=== PATIENT | female | born 2005 | race Caucasian/White ===

== ENCOUNTER 2025-05-25 14:48 | Emergency (ER) | payer OTHER, SELFPAY ==
--- OUTSIDE RECORDS SUMMARY | 2025-05-25 14:49 | XMS_ITS | Clinical Summary ---
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 Name Role Phone Aline Reyes MD Primary Care Prov ider Allergies No known active allergies Medications No known medications Active Problems ProblemNoted DateDiagnosed Datelabial yvwuigqoq56/10/2006 Encounters DateTypeDepartmentCare JlyiPodtjjzswoc55/27/2025Nurse Triage [facility] [address] [place], [place] [phone] Aline Reyes MD Problemfrom Last 3 Months Immunizations ImmunizationAdministration DatesNext HhzIIbC37/15/2008,06/25/2005,2004, 2004,2004HIB PRP-T (ActHIB,Hiberix)06/25/2005,2004,2004 Hepatitis A (Peds)11/07/2013,04/08/2006Hepatitis B (Peds)06/25/2005,2004, 2004Inactivated Polio Sdfdqfq0005/13/2008,2004,2004,2004 Influenza, IIV3 (Age 6-35 mos)04/08/2006Influenza, IIV3 (Age >=3 years) 05/13/2008MENINGOCOCCAL VACCINE 2 VIAL 2MO-55YO (MENVEO)03/03/2015MMR107/14/2007, 03/12/2005Pneumococcal conj 7-Valent (Prevnar 7)06/25/2005,2004,2004 ,2004Tdap1Varicella Tdpxdiq4705/13/2008,03/12/2005 Family History Medical HistoryRelationNameCommentsGood HealthBrother 1Good HealthBrother 2Good HealthBrother 3Good HealthFatherGood HealthMotherGood HealthSister 1Good Health Sister 2RelationNameStatusCommentsBrother 1AliveBrother 2AliveBrother 3Alive FatherAliveMotherAliveSister 1AliveSister 2Alive Social History Tobacco UseTypesPacks/DayYears UsedDateSmoking Tobacco: NeverSmokeless Tobacco: Never Comments:no passive smoke ex posure Alcohol UseStandard Drinks/WeekCommentsNo0 (1 standard drink = 0.6 oz pure alcohol)PHQ-2AnswerDate RecordedPHQ-2 Uwobn794CommentsNoSex and Gender InformationValueDate RecordedSex Assigned at BirthNot on fileLegal Sex Lfparq0006/12/2012 7:06 AM CSTGender IdentityNot on fileSexual OrientationNot on file Last Filed Vital Signs Vital SignReadingTime TakenCommentsBlood Wzvjxnuk224/69006/04/2024 11:51 AM 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 Cvswi885806/04/2024 11:51 AM XINMpysgprjalb24.4 ??C (97.6 ??F)06/04/2024 11:51 AM CSTRespiratory Czst196006/04/2024 11:51 AM CSTOxygen Mokqhtaalr81%06/04/2024 11:51 AM CSTInhaled Oxygen Concentration--Jljvgs77.4 kg (120 lb)06/04/2024 11:51 AM JDFWgxuic043.5 cm (5' 1.22)04/03/2018 3:13 PM CSTBody Mass Index-- Plan of Treatment Health MaintenanceDue DateLast DoneCommentsHIV for age 15-6502/28/2019HPV series for age 9-45 (1 - 3-dose series)02/28/2019Depression screening for age 12+ , 03/01/2017, 04/27/2016Meningococcal series for age 11-21 (2 - 2-dose series)BMI (ht and wt on same day) for age 18+ 02/28/2022Hepatitis C screening for age 18-7902/28/2022OVID-19 vaccine series (1 - 2024- season)2025Influenza Vaccine (#1)/, 04/08/2006Pap test for age 21-6502/28/2025Tetanus Hepatitis B series for 19+Kkznmulze14/27/2006, 2004, 2004 Pneumococcal series for age 6-49Aged Out06/25/2005, 2004, 2004, Additional history existsNo longer eligible based on patient's age to complete this topic Insurance Care Teams Team MemberRelationshipSpecialtyStart DateEnd Date Aline Reyes MD [address] [place] [address] [facility] - Lmyjimz39/8/05
[2025-05-25 15:01] VITALS: BP 120/75; PULSE 105; RESP 20; TEMP 37.9; O2SAT 99; BMI 21.9
--- NOTE | 2025-05-25 15:49 | ED.GENADULT ---
HPI - General Adult General Chief complaint: Vaginal Bleeding Stated complaint: possible miscarriage Time Seen by Provider: 05/25/25 15:34 History of Present Illness HPI narrative: This 20-year-old female states that she had a positive test at home 3 days ago. Today she developed some mild vaginal bleeding and abdominal cramping. She wonders if she is having a miscarriage. She states that her last menstrual period was 1 month and 2 days ago. This is her 1st . She states that she typically has more intense symptoms of cramping in bleeding when she has menses compared to what she is experiencing today. Related Data Home Medications ?Medication ?Instructions ?Recorded ?Confirmed amoxicillin 500 mg-potassium 1 tab PO BID 06/12/24 06/12/24 clavulanate 125 mg tablet Allergies Allergy/AdvReac Type Severity Reaction Status Date / Time No Known Drug Allergies Allergy Verified 06/12/24 12:58 Review of Systems Status of ROS: Reports: 10 or more systems reviewed and unremarkable except as noted in History and below Narrative: Constitutional: No fevers, no weight gain or loss. Eyes: No discharge. No vision changes. HENT: No congestion, no sore throat, no ear pain. Cardiovascular: No chest pain, no palpitations. Respiratory: No shortness of breath, no wheezes, no cough. Gastrointestinal: No vomiting, no diarrhea. Genitourinary: No dysuria, no hematuria. Abdominal cramping and some vaginal bleeding. Musculoskeletal: Normal range of motion. Skin: No rashes, no pruritis. Neurological: No dizziness, weakness, sensory change, speech change. Endo/Heme/Allergies: No bruising or bleeding. No polydipsia. Pysch: no suicidality, no anxiety, no insomnia. All other systems reviewed and are negative. Exam Narrative: Exam Narrative: Constitutional: Well-developed, well-nourished, no acute distress. HEENT: Normocephalic, atraumatic. Neck: Normal range of motion. Nontender. Supple. Heart: Intact distal pulses. Lungs: No chest discomfort. No wheezes, rhonchi, or rales. Abdomen: Nontender. Back: Normal range of motion. Extremities: Normal range of motion. No injury. Skin: Intact. No rash. Warm. No erythema or pallor. Neurologic: No altered sensation. No weakness. Alert and oriented. Psychiatric: No suicidality. No anxiety or depression. No insomnia. Nursing notes and vitals signs are reviewed. Const: Vital Signs, click to edit/add: Vital Signs - 24 hr 05/25/25 15:01 Temperature 100.3 F H Pulse Rate [Pulse Oximeter] 105 H Respiratory Rate 20 Blood Pressure [Ri ght Upper Arm] 120/75 Pulse Oximetry 99 Oxygen Delivery Me thod Room Air Course Vital Signs Vital signs: Initial Vital Signs Temperature 100.3 F H 05/25/25 15:01 Temperature Source Temporal Artery Scan 05/25/25 15:01 Pulse Rate 105 H 05/25/25 15:01 Respiratory Rate 20 05/25/25 15:01 Blood Pressure 120/75 05/25/25 15:01 Blood Pressure Mean 90 05/25/25 15:01 Blood Pressure Position Sitting 05/25/25 15:01 Pulse Oximetry 99 05/25/25 15:01 Oxygen Delivery Method Room Air 05/25/25 15:01 Vital Signs Temperature 100.3 F H 05/25/25 15:01 Pulse Rate 105 H 05/25/25 15:01 Respiratory Rate 20 05/25/25 15:01 Blood Pressure 120/75 05/25/25 15:01 Pulse Oximetry 99 05/25/25 15:01 Oxygen Delivery Method Room Air 05/25/25 15:01 Temperature 100.3 F H 05/25/25 15:01 Pulse Rate 105 H 05/25/25 15:01 Respiratory Rate 20 05/25/25 15:01 Blood Pressure 120/75 05/25/25 15:01 Pulse Oximetry 99 05/25/25 15:01 Oxygen Delivery Method Room Air 05/25/25 15:01 Medical Decision Making MDM Narrative Medical decision making narrative: This patient comes in stating that she had a positive test at home a couple days ago but now is having some cramping and small amount of vaginal bleeding. A beta hCG level returns at 19.75 indicating the likely in the 1st week of gestation. I did use bedside ultrasound and saw normal a bladder and uterus without any evidence of gestational sac, however it is much too early for something to be visualized at this time. A nasal swab is obtained also and happens to return positive for influenza A. Patient states that she has had a mild cough for upwards of a week but states that she does not feel miserable and her symptoms are rather mild. The patient is okay to be discharged home. I stated that she may be beginning to have a miscarriage but time will tell. I advised her regarding signs and symptoms indicating need for return and stated that there is value in having a repeat beta hCG level and a couple days to see where the level is going as a predictor for her . Lab Data Labs: Lab Results 05/25/25 05/25/25 Range/Units 15:05 15:56 WBC 8.63 (4.50-11.00) K/uL RBC 4.42 (4.00-5.20) m/uL Hgb 13.6 (12.0-16.0) gm/dL Hct 41.4 (33.0-51.0) % MCV 94 (80-100) fL MCH 31 (26-34) pg MCHC 33 (32-36) gm/dL RDW Coeff of Rashaad 11.7 (11.5-15.5) % Plt Count 232 (140-440) K/uL Neut % (Auto) 88.0 H (42.0-72.0) % Lymph % (Auto) 4.8 L (20-44) % [place] % (Auto) 6.8 (0.0-11.0) % Eos % (Auto) 0.1 (0.0-7.0) % Baso % (Auto) 0.2 (0.0-3.0) % Neut # (Auto) 7.60 H (1.7-7.0) K/uL Lymph # (Auto) 0.40 L (0.90-2.90) K/uL [place] # (Auto) 0.60 (0.00-0.90) K/UL Eos # (Auto) 0.01 (0.00-0.50) K/uL Baso # (Auto) 0.02 (0.00-0.30) K/uL Abs Immat Gran (auto) 0.01 (0.00-0.30) K/uL Imm/Tot Granulo (auto) 0.1 % HCG, Quant 19.75 mIU/mL SARS-CoV-2 (PCR) Negative SARS-CoV-2 (Negative) Influenza Type A (PCR) POSITIVE PCR FLU A A (Negative) Influenza Type B (PCR) Negative PCR FLU B (Negative) RSV (PCR) Negative PCR RSV (Negative) Discharge Plan Discharge Clinical Impression: Vaginal bleeding during , Influenza A Patient Disposition: Home, Self-Care Condition: Stable Additional Instructions: Continue current plans. Follow up with clinic for repeat hCG level or return if worsening symptoms occur. Prescriptions: No Action amoxicillin-pot clavulanate 500-125 mg tablet 1 tab PO BID Follow Up/Referrals: Provider,Not a Local [Primary Care Provider, Family Practice] Stand Alone Forms: MyHealth Info Instructions Procedures POC Ultrasound Abdomen Limited Anatomical areas examined: Uterus at 4 weeks gestation. Indications: Vaginal bleeding and abdominal cramping. Exam Type: Limited abdominal ultrasound Description/ Findings: No gestational sac identified in limited ability of a transabdominal view at about 4 weeks gestation. Impression: Normal exam.
[2025-05-25 15:53] LABS: PCR FLU A POSITIVE PCR FLU A (Negative); PCR FLU B Negative PCR FLU B (Negative); PCR RSV Negative PCR RSV (Negative); SARS PCR* Negative SARS-CoV-2 (Negative)
[2025-05-25 16:16] LABS: Hematocrit* 41.4 % (33.0-51.0); Hemoglobin* 13.6 gm/dL (12.0-16.0); Immature Granulocytes Abs Auto 0.01 K/uL (0.00-0.30); Immature Granulocytes Pct Auto 0.1 %; Mean Corpuscular HGB Conc 33 gm/dL (32-36); Mean Corpuscular Hemoglobin 31 pg (26-34); Mean Corpuscular Volume 94 fL (80-100); RDW Coefficient of Variation % 11.7 % (11.5-15.5); Red Blood Count* 4.42 m/uL (4.00-5.20); White Blood Count* 8.63 K/uL (4.50-11.00)
[2025-05-25 16:17] LABS: Lymphocytes Absolute Auto 0.40 K/uL (0.90-2.90); Slide Review Reflex No
[2025-05-25 16:50] LABS: HCG Quantitative* 19.75 mIU/mL
== END 2025-05-25 17:17 | disposition home or self-care (01) ==
PROVIDERS: Emergency Provider Emergency Medicine Emergency Medical Services
DX: O20.9 Hemorrhage in early pregnancy, unspecified (principal); J10.1 Influenza due to other identified influenza virus with other respiratory manifestations; Z3A.01 Less than 8 weeks gestation of pregnancy
CPT/HCPCS: 36415; 76705; 84702; 85025; 86900; 86901; 87631; 99284; 99285